=== PATIENT | male | born 2000 | race Caucasian/White ===

== ENCOUNTER 2021-06-02 15:20 | Emergency (ER) | payer MEDICAID ==
[~2021-06-02] VITALS: Ht 167.6 cm; Wt 95.3 kg
[2021-06-02 15:20] VITALS: BP_SYST 113
[2021-06-02] MEDS ORDERED: IBUPROFEN 600 MG TABLET PO ONE (16:45)
[2021-06-02] MEDS ORDERED: METOCLOPRAMIDE HCL 10 MG TABLET PO ONE (16:45)
[2021-06-02] MEDS ORDERED: SUMAtriptan SUCCINATE 6 MG/0.5 ML VIAL SUBCUT ONE (16:45)
[2021-06-02] MEDS ORDERED: METO-290 PO (19:15)
[2021-06-02] MEDS ORDERED: IBUP-1969 PO (19:15)
[2021-06-02 19:28] VITALS: BP_SYST 113
== END 2021-06-02 19:28 | disposition home or self-care (01) ==
LOC: SED 15:20
DX: G43.909 Migraine, unspecified, not intractable, without status migrainosus (principal); F17.210 Nicotine dependence, cigarettes, uncomplicated
CPT/HCPCS: 99283; J3030; J8597

== ENCOUNTER 2021-08-31 15:08 | Emergency (ER) | payer MEDICAID ==
[~2021-08-31] VITALS: Ht 167.6 cm; Wt 90.7 kg
[~2021-08-31 15:08] MED LIST: IBUP-1969 PO; METO-290 PO
[2021-08-31 15:25] VITALS: BP_SYST 111
[2021-08-31 15:35] VITALS: BP_SYST 111
== END 2021-08-31 15:35 | disposition left against medical advice (07) ==
LOC: SED 15:08
DX: K92.1 Melena (principal); Z53.21 Procedure and treatment not carried out due to patient leaving prior to being seen by health care provider